=== PATIENT | female | born 1965 | race Caucasian/White ===

== ENCOUNTER 2020-07-14 16:45 | Outpatient (REF) | payer OTHER, SELFPAY ==
--- NOTE | 2020-07-14 16:49 | MM_ITS ---
EXAMINATION: MM SCREENING DIGITAL BREAST TOMOSYNTHESIS, BILATERAL CLINICAL INFORMATION: Screening. Asymptomatic. Family history breast cancer (maternal grandmother, age 70). The lifetime risk of breast cancer based on the Tyrer-Cuzick Model is 9%. COMPARISON: Mammography: 12/25/2018, outside mammography 02/08/2016, 01/05/2015, 12/29/2014 ([facility]) TECHNIQUE: Digital breast tomosynthesis is performed in both the craniocaudal and mediolateral oblique views along with computer-aided detection (CAD). Synthesized 2D images are generated from the tomosynthesis. FINDINGS: There are scattered areas of fibroglandular density (ACR BI-RADS breast composition Category b). There are no significant masses, abnormal calcifications, or other abnormalities. Pattern is similar to prior studies. No developing density. The axilla and skin contours are unremarkable. IMPRESSION: No significant changes from prior exams. ASSESSMENT: BI-RADS 1: Negative RECOMMENDATION: Routine annual mammography screening. This patient's information was entered into a reminder system with a target due date for their next mammogram.
== END 2020-07-14 16:46 | disposition home or self-care (01) ==
LOC: HO.MAMMO 16:45
PROVIDERS: PCP Internal Medicine; Visit Provider Internal Medicine
DX: Z12.31 Encounter for screening mammogram for malignant neoplasm of breast (principal)
CPT/HCPCS: 77063; 77067

== ENCOUNTER 2021-08-02 13:20 | Outpatient (REF) | payer OTHER, SELFPAY ==
--- NOTE | ~2021-08-02 | MM_ITS ---
EXAMINATION: MM SCREENING DIGITAL BREAST TOMOSYNTHESIS, BILATERAL CLINICAL INFORMATION: Screening. Asymptomatic. The lifetime risk of breast cancer based on the Tyrer-Cuzick Model is 8%. COMPARISON: Mammography: 07/14/2020, 12/25/2018, outside mammography 02/08/2016 ([facility]) TECHNIQUE: Digital breast tomosynthesis is performed in both the craniocaudal and mediolateral oblique views along with computer-aided detection (CAD). Synthesized 2D images are generated from the tomosynthesis. FINDINGS: There are scattered areas of fibroglandular density (ACR BI-RADS breast composition Category b). There are no significant masses, abnormal calcifications, or other abnormalities. There is no developing density or architectural abnormality. Parenchymal pattern is similar to previous exams. The axilla are unremarkable. The skin contours are smooth. No significant changes. MM/MM tomosynthesis screening BI IMPRESSION: No mammographic evidence of malignancy. ASSESSMENT: BI-RADS 1: Negative RECOMMENDATION: Routine annual mammography screening. This patient's information was entered into a reminder system with a target due date for their next mammogram.
== END 2021-08-02 13:21 | disposition home or self-care (01) ==
LOC: HO.MAMMO 13:20
PROVIDERS: Visit Provider Internal Medicine
DX: Z12.31 Encounter for screening mammogram for malignant neoplasm of breast (principal)
CPT/HCPCS: 77063; 77067

== ENCOUNTER 2022-05-16 08:02 | Outpatient (REF) | payer OTHER, SELFPAY ==
[2022-05-16 11:19] LABS: MANUAL DIFF FLAG NO
[2022-05-16 11:36] LABS: Basophils Absolute Auto 0.1 X10*3/uL (0.0-0.2); Basophils Percent Auto 1.1 % (0-2); Eosinophils Absolute Auto 0.2 X10*3/uL (0.0-0.4); Eosinophils Percent Auto 2.5 % (0-4); Hematocrit 44.3 % (37.0-47.0); Hemoglobin 14.3 g/dl (12.0-16.0); Imm Gran Abs Auto 0.01 X10*3/uL (0.00-0.03); Imm Gran Pct Auto 0.2 % (0.0-0.4); Lymphocytes Absolute Auto 1.9 X10*3/uL (1.2-4.9); Mean Corpuscular HGB Conc 32.3 g/dl (31.0-35.0); Mean Corpuscular Hemoglobin 30.7 pg (27.0-33.0); Mean Corpuscular Volume 95.1 fL (80.0-98.0); Mean Platelet Volume 10.9 fL (9.4-12.3); Monocytes Absolute Auto 0.4 X10*3/uL (0.1-1.2); Monocytes Percent Auto 6.8 % (2-11); Neutrophils Absolute Auto 3.8 x10*3/uL (2.0-8.3); Neutrophils Percent Auto 59.4 % (45-73); Platelet Count 336 X10*3/uL (160-400); Red Blood Count 4.66 X10*6/uL (4.20-5.50); Red Cell Distribution Width 13.2 % (11.0-16.0); White Blood Count 6.4 X10*3/uL (4.8-10.8)
[2022-05-16 11:55] LABS: Alanine Aminotransferase 15 U/L (0-31); Albumin Level 4.1 g/dL (3.5-5.0); Alkaline Phosphatase 70 U/L (39-117); Anion Gap 14 (12-20); Aspartate Amino Transferase 18 U/L (5-31); Bilirubin Total 0.5 mg/dL (0.0-1.0); Blood Urea Nitrogen 13 mg/dL (9-16); Calcium 9.6 mg/dL (8.4-10.2); Carbon Dioxide 27 mmol/L (22-29); Chloride 105 mmol/L (96-108); Cholesterol 219 mg/dL; Estimated Glomerular Filt Rate > 60; Glucose Fasting 93 mg/dL (60-99); HDL Cholesterol 69 mg/dL; LDL Cholesterol Calculated 136 mg/dl; Potassium 4.7 mmol/L (3.3-5.1); Sodium 141 mmol/L (135-145); Total Protein 6.4 g/dL (6.5-8.0); Triglycerides 74 mg/dL
[2022-05-16 12:18] LABS: TSH reflex Free T4 4.62 uIU/mL (0.32-4.0)
[2022-05-16 13:35] LABS: Free T4 (Free Thyroxine) 1.08 ng/dL (0.71-1.85)
== END 2022-05-16 08:03 | disposition home or self-care (01) ==
LOC: HO.HMGCLDS 08:02
PROVIDERS: PCP Internal Medicine; Visit Provider Internal Medicine
DX: Z00.00 Encounter for general adult medical examination without abnormal findings (principal); E03.9 Hypothyroidism, unspecified
CPT/HCPCS: 36415; 80053; 80061; 84439; 84443; 85025

== ENCOUNTER 2022-08-08 12:39 | Outpatient (REF) | payer OTHER, SELFPAY ==
--- NOTE | ~2022-08-08 | MM_ITS ---
EXAMINATION: MM SCREENING DIGITAL BREAST TOMOSYNTHESIS, BILATERAL CLINICAL INFORMATION: Screening. Asymptomatic. COMPARISON: Mammography: 08/02/2021, 07/14/2020, 12/25/2018 TECHNIQUE: Digital breast tomosynthesis is performed in both the craniocaudal and mediolateral oblique views along with computer-aided detection (CAD). Synthesized 2D images are generated from the tomosynthesis. FINDINGS: There are scattered areas of fibroglandular density (ACR BI-RADS breast composition Category b). There are no significant masses, abnormal calcifications, or other abnormalities. Parenchymal pattern is similar to prior studies. There is no developing density or architectural abnormality. The axilla and skin contours are unremarkable. No significant changes. MM/MM tomosynthesis screening BI IMPRESSION: No mammographic evidence of malignancy. ASSESSMENT: BI-RADS 1: Negative RECOMMENDATION: Routine annual mammography screening. This patient's information was entered into a reminder system with a target due date for their next mammogram.
== END 2022-08-08 12:40 | disposition home or self-care (01) ==
LOC: HO.MAMMO 12:39
PROVIDERS: Visit Provider Internal Medicine
DX: Z12.31 Encounter for screening mammogram for malignant neoplasm of breast (principal)
CPT/HCPCS: 77063; 77067

== ENCOUNTER 2023-04-17 10:01 | Outpatient (AMB) | payer OTHER, SELFPAY ==
[2023-04-17 11:29] VITALS: BP 114/78; PULSE 58; TEMP 36.7; O2SAT 99
--- NOTE | 2023-04-17 11:29 | MHC.OFFWIV ---
Intake Vital Signs 04/17/23 11:29 Height 5 ft 5.5 in BP 114/78 Blood Pressure Location Rt brachial Position Sitting Pulse 58 Pulse Source Pulse Oximeter Temp 98.1 F Temp Source Oral Pulse Oximetry (%) 99 Oxygen Delivery Method Room Air Intake Visit Reasons: EP, Right ear pain Patient Tobacco Use Status: Never used Tobacco Allergies Fish Containing Products Allergy (Intermediate, Verified 04/17/23 11:30) SWELLING bee pollen [BEE STINGS] Allergy (Unknown, Verified 04/17/23 11:30) UNKNOWN lobster Allergy (Unknown, Verified 04/17/23 11:30) neck swelling, abd pain sulfa Allergy (Unknown, Verified 04/17/23 11:30) facial rash, hives sulfamethoxazole [From MAYRA] Allergy (Unknown, Verified 04/17/23 11:30) RASH trimethoprim [From MAYRA] Allergy (Unknown, Verified 04/17/23 11:30) RASH bee sting Allergy (Unknown, Uncoded 05/23/22 09:23) blisters bee stings Allergy (Unknown, Uncoded 05/23/22 09:23) swelling Do you need a note to return to daycare/school/sports/work: No HPI HPI Comments History of Present Illness Details 57-year-old female presents with almost 2 weeks of right-sided ear pain and pressure that has been causing some dizziness, and has been unrelieved with [id number] medications. She has been taking a decongestant, and Dramamine to help her with the dizziness however mhpn-lka-qzfgqok measures have been unsuccessful. He does report swimming a few weeks ago, and then the pain started shortly after. PFSH Medical History FHx: colon cancer Hx of bone density study Osteopenia after menopause Surgical History H/O colonoscopy Family History Father Diabetes Colorectal cancer Mother Hypothyroid Social History Housing: House Patient Tobacco Use Status: Never used Tobacco e-Cigarette/Vaping Use: Never Used Current occupational status: employed Cognitive needs: No Hearing needs: No Vision needs: Yes Review of Systems Const Details: Constitutional: No Fever, No Chills ENT/Mouth: Positive Ear Pain, No Hoarseness, No sore throat Eyes: No Eye Pain, No Swelling, No Redness, No Foreign Body Cardiovascular: No Chest Pain, No SOB Respiratory: No Cough, No Dyspnea Gastrointestinal: No Nausea, No Vomiting, No Diarrhea, No abdominal Pain Genitourinary: No Dysuria, No Hematuria Musculoskeletal: No joint pain, No Myalgias, No Joint Swelling Skin: No Skin lacerations, No rash Neuro: No Weakness, No Dizziness, No Headache All systems reviewed & are unremarkable except as noted in HPI and below Physical Exam Vital Signs: Last Vital Signs Temp 98.1 F 04/17/23 11:29 Pulse 58 04/17/23 11:29 BP 114/78 04/17/23 11:29 Pulse Ox 99 04/17/23 11:29 Oxygen Delivery Method Room Air 04/17/23 11:29 Appearance: Alert. Oriented X3. No acute distress. Eyes: Pupils equal, round and reactive to light. ENT: Pharynx normal. Right-sided otitis externa, and otitis media. Bulging erythematous tympanic membrane without perforation, suppurative. Left canal and membrane normal. No mastoid tenderness. No nuchal rigidity. Tenderness to the tragus on the right side only. Neck: Normal inspection. Neck supple. no vertebral tenderness or step-offs. No meningeal signs. CVS: Normal heart rate and rhythm. Pulses normal. Respiratory: No respiratory distress. Skin: Skin warm and dry. Normal skin color. Normal skin turgor. Extremities: Gait well balanced well coordinated. Neuro: No motor deficit. No sensory deficit. Cranial nerves 2-12 intact. Assessment & Plan Assessment & Plan (1) Otitis externa: Code(s): H60.90 - Unspecified otitis externa, unspecified ear (2) Otitis media: Code(s): H66.90 - Otitis media, unspecified, unspecified ear Plan 57-year-old female presents with almost 2 weeks of right-sided ear pain and dizziness, pain started few days after swimming. She has been taking cqqw-mno-[id number] medications to help alleviate the ear pain and dizziness, with no effect. She states pain has worsened, but did not report fevers, chills, or loss of hearing. She does not report loss of balance, or changes in vision. Physical exam indicates otitis media and otitis externa to the right ear, left ear is normal. She does have some tenderness to the tragus on the right side, but no mastoid tenderness, no nuchal rigidity. No meningeal signs. No rashes. Plan of care is to treat for otitis media and externa. Patient verbalized understanding of discharge instructions. Verbalized understandings of signs and symptoms indicating need for emergent intervention. Medications: New ciprofloxacin-dexamethasone 0.3-0.1 % (Ciprodex) 4 drps otic (ears) BID 7 days 7.5 mL 0RF right ear amoxicillin-pot clavulanate 875-125 mg 1 tab PO Q12H 5 days 10 tabs 0RF Patient Instructions: You were evaluated for right-sided ear pain. Physical exam indicates an external ear canal and an inner ear infection. You will require 2 antibiotics for this finding. For the external ear infection, take Ciprodex drops, 4 drops to the right ear every 12 hours for the next 7 days. For otitis media tab, take Augmentin 875 mg 1 tablet every 12 hours for the next 5 days. Alternate Tylenol 650 mg every 6 hours and Motrin 600 mg every 6 hours as needed for pain management. Consider taking these medications 3 hours apart so you have pain and fever management every 3 hours. Write down what time you take these medications to prevent accidental overdose. Motrin is the same medication as Advil and ibuprofen. Tylenol is the same medication as acetaminophen. Thank you for choosing this urgent care for evaluation. Please follow-up with primary care physician as needed. Return to the emergency department for any new, concerning, or worsening symptoms. Coding Level of Care Code Est Pt Level 3 (50438) Diagnoses Otitis externa H60.90 Otitis media H66.90
== END 2023-04-17 12:22 | disposition home or self-care (01) ==
PROVIDERS: PCP Internal Medicine; Visit Provider Nurse Practitioner Family
DX: H60.91 Unspecified otitis externa, right ear (principal); H66.91 Otitis media, unspecified, right ear
CPT/HCPCS: 99213

== ENCOUNTER 2023-08-14 10:12 | Outpatient (REF) | payer OTHER, SELFPAY ==
--- NOTE | ~2023-08-14 | MM_ITS ---
EXAMINATION: MM SCREENING DIGITAL BREAST TOMOSYNTHESIS, BILATERAL CLINICAL INFORMATION: Screening. Asymptomatic. COMPARISON: Mammography: This study is compared with prior exams dating back to 2016. TECHNIQUE: Digital breast tomosynthesis is performed in both the craniocaudal and mediolateral oblique views along with computer-aided detection (CAD). Synthesized 2D images are generated from the tomosynthesis. FINDINGS: There are scattered areas of fibroglandular density (ACR BI-RADS breast composition Category b). There are no significant masses, abnormal calcifications, or other abnormalities. MM/MM tomosynthesis screening BI IMPRESSION: No mammographic evidence of malignancy. ASSESSMENT: BI-RADS BI-RADS 1 - Negative RECOMMENDATION: Routine annual mammography screening. 1 year F/U This examination should not preclude the clinical evaluation of a suspicious palpable abnormality. This patient's information was entered into a reminder system with a target due date for their next mammogram.
== END 2023-08-14 10:13 | disposition home or self-care (01) ==
LOC: HO.MAMMO 10:12
PROVIDERS: PCP Internal Medicine; Visit Provider Internal Medicine
DX: Z12.31 Encounter for screening mammogram for malignant neoplasm of breast (principal)
CPT/HCPCS: 77063; 77067

== ENCOUNTER → 2023-08-14 10:30 | Outpatient (BNV) | payer OTHER, SELFPAY | PROVIDERS: PCP Internal Medicine; Visit Provider Radiology Diagnostic Radiology | DX: Z12.31 Encounter for screening mammogram for malignant neoplasm of breast (principal) | CPT/HCPCS: 77063; 77067 ==

== ENCOUNTER 2023-11-28 09:11 | Outpatient (AMB) | payer OTHER, SELFPAY ==
[2023-11-28 10:09] VITALS: BP 130/68; PULSE 60; TEMP 36.6; O2SAT 98; BMI 29.3
--- NOTE | 2023-11-28 10:09 | MHC.OFFWIV ---
Intake Vital Signs 11/28/23 10:09 Height 5 ft 5.5 in Weight 179 lb BMI 29.3 BP 130/68 Blood Pressure Location Lt brachial Position Sitting Pulse 60 Pulse Source Pulse Oximeter Temp 97.9 F Temp Source Temporal Artery Scan Pulse Oximetry (%) 98 Oxygen Delivery Method Room Air Intake Visit Reasons: EP Sinus pressure/pain Intake Note: pt is here today for sinus pressure pain started Patient Tobacco Use Status: Never used Tobacco Allergies Fish Containing Products Allergy (Severe, Verified 11/28/23 11:06) Swelling bee pollen [BEE STINGS] Allergy (Unknown, Verified 11/28/23 11:06) Unknown lobster Allergy (Unknown, Verified 11/28/23 11:06) neck swelling, abd pain sulfa Allergy (Unknown, Verified 11/28/23 11:06) facial rash, hives sulfamethoxazole [From [facility]PTRA] Allergy (Unknown, Verified 11/28/23 11:06) Rash trimethoprim [From SEPTRA] Allergy (Unknown, Verified 11/28/23 11:06) Rash Medication List - Last Reconciled 11/28/23 by SHAHNAZ Rico amoxicillin-pot clavulanate 875-125 mg 1 tab PO Q12H ciprofloxacin-dexamethasone 0.3-0.1 % (Ciprodex) 4 drps otic (ears) BID 7 days fluticasone propionate 50 mcg/actuation (Allergy Relief (fluticasone)) 1 spray intranasal DAILY levothyroxine 4 days per week orally daily; levothyroxine 3 days per week orally; Do you need a note to return to daycare/school/sports/work: Yes HPI HPI Comments History of Present Illness Details Patient is a 58-year-old female in today for a sick visit. She states that for the past several days she has developed symptoms of sinus pressure, headache, bilateral ear pain. She states she has a history of ear infections. Denies fever, chest pain, shortness a breath, numbness, nausea, vomiting, diarrhea. She has not taken any medication for relief. Will obtain URI swab. PFSH Medical History Hx of bone density study FHx: colon cancer Osteopenia after menopause Surgical History H/O colonoscopy Family History Father Diabetes Colorectal cancer Mother Hypothyroid Social History Housing: House Patient Tobacco Use Status: Never used Tobacco e-Cigarette/Vaping Use: Never Used Current occupational status: employed Cognitive needs: No Hearing needs: No Vision needs: Yes Review of Systems Const Details: Constitutional : No Weight loss, No Fever, No Chills, No Fatigue, No Malaise ENT/Mouth : No sore throat, Admits sinus tenderness. Admits bilateral ear pain. Eyes: No Eye Pain, No Swelling, No Redness Cardiovascular : No Chest Pain, No SOB, No Dyspnea on Exertion, No Orthopnea, No Edema, No Palpitations Respiratory : No Cough, No Sputum, No Wheezing Gastrointestinal : No Nausea, No Vomiting, No Diarrhea, No Constipation, No abdominal Pain, No Hematochezia, No Melena Genitourinary : No Dysuria, No Urinary Frequency, No Hematuria, Musculoskeletal : No joint pain, No Myalgias, No Joint Swelling Skin : No Skin Lesions, No rash Neuro : No Weakness, No Numbness, No Dizziness, No Headache Psych : No Anxiety/Panic, No Depression Heme/Lymph: No Bruising, No Bleeding,No Lymphadenopathy Endocrine : No Polyuria, No Polydipsia All other systems reviewed and are negative Physical Exam Vital Signs: Last Vital Signs Temp 97.9 F 11/28/23 10:09 Pulse 60 11/28/23 10:09 BP 130/68 11/28/23 10:09 Pulse Ox 98 11/28/23 10:09 Oxygen Delivery Method Room Air 11/28/23 10:09 BMI result Body Mass Index 29.3 Const Other: Appearance: Alert.? Oriented X3.? No acute distress.? Head: Normocephalic. Eyes: Pupils equal, round and reactive to light.? ENT: Pharynx normal.?+ nasal congestion. + Sinus tednerness, TM intact with erythema and effusion bilaterally. Neck: Normal inspection.? Neck supple.? CVS: Normal heart rate and rhythm.? Pulses normal.? Respiratory: No respiratory distress.? Breath sounds normal.? Neuro: Oriented X 3.? No motor deficit.? No sensory deficit. CN 2-12 intact Assessment & Plan Assessment & Plan (1) Otitis media: Comment: Patient will be given Augmentin to be taken as directed. Patient has been educated on the side effects of the medication. Patient has also been instructed that she can use mlgi-llw-kvugowh medicine like Mucinex, Tylenol. Code(s): H66.90 - Otitis media, unspecified, unspecified ear Qualifiers: Otitis media type: unspecified Chronicity: acute Qualified Code(s): H66.90 - Otitis media, unspecified, unspecified ear Plan: Take your medications as prescribed. If you were prescribed antibiotics today, it is important that you take your medication to their entirety, do not skip any doses, do not finish them early. Follow-up with your primary care provider this week. Return to the emergency department with new or worsening symptoms. Such as fevers, chills, chest pain, shortness of breath, nausea, vomiting, dizziness, headache, vision changes, lethargy In case of emergency call 911 Orders: Orders SARS-CoV2/FLU/RSV Today J06.9 - Acute upper respiratory infection, unspecified Medications: New amoxicillin-pot clavulanate 875-125 mg 1 tab PO Q12H 14 tabs 0RF fluticasone propionate 50 mcg/actuation (Allergy Relief (fluticasone)) administer into each nostril 1 spray intranasal DAILY 16 grams 0RF Refilled levothyroxine 3 days per week orally; 39 tabs 3RF E03.9 - Hypothyroidism, unspecified Patient Instructions: Follow-up with PCP Coding Level of Care Code Est Pt Level 3 (15716) Diagnoses Acute otitis media, unspecified otitis media type H66.90 Otitis media type: unspecified Chronicity: acute Time Spent (min) 18
== END 2023-11-28 13:39 | disposition home or self-care (01) ==
PROVIDERS: PCP Internal Medicine; Visit Provider Nurse Practitioner Primary Care
DX: H66.93 Otitis media, unspecified, bilateral (principal)
CPT/HCPCS: 99213

== ENCOUNTER 2023-11-28 14:06 | Outpatient (REF) | payer OTHER, SELFPAY ==
[2023-11-28 15:15] LABS: Influenza A PCR NEGATIVE (Negative); Influenza B PCR NEGATIVE (Negative); Resp Syncy Virus RNA Qual PCR NEGATIVE (Negative); SARS COV2 PCR INHOUSE NEGATIVE (Negative)
== END 2023-11-28 14:07 | disposition home or self-care (01) ==
LOC: HO.HMGCLNP 14:06
PROVIDERS: Visit Provider Nurse Practitioner Primary Care
DX: Z11.52 Encounter for screening for COVID-19 (principal); Z20.822 Contact with and (suspected) exposure to COVID-19; J06.9 Acute upper respiratory infection, unspecified
CPT/HCPCS: 0241U

== ENCOUNTER 2023-12-11 08:52 | Outpatient (REF) | payer OTHER, SELFPAY ==
[2023-12-11 11:10] LABS: MANUAL DIFF FLAG NO
[2023-12-11 11:32] LABS: Basophils Absolute Auto 0.1 X10*3/uL (0.0-0.2); Basophils Percent Auto 1.3 % (0-2); Eosinophils Absolute Auto 0.2 X10*3/uL (0.0-0.4); Eosinophils Percent Auto 3.2 % (0-4); Hematocrit 43.5 % (37.0-47.0); Hemoglobin 14.2 g/dl (12.0-16.0); Imm Gran Abs Auto 0.02 X10*3/uL (0.00-0.03); Imm Gran Pct Auto 0.3 % (0.0-0.4); Lymphocytes Absolute Auto 2.2 X10*3/uL (1.2-4.9); Lymphocytes Percent Auto 31.3 % (20-40); Mean Corpuscular HGB Conc 32.6 g/dl (31.0-35.0); Mean Corpuscular Hemoglobin 30.5 pg (27.0-33.0); Mean Corpuscular Volume 93.3 fL (80.0-98.0); Monocytes Absolute Auto 0.5 X10*3/uL (0.1-1.2); Monocytes Percent Auto 6.7 % (2-11); Neutrophils Percent Auto 57.2 % (45-73); Platelet Count 336 X10*3/uL (160-400); Red Blood Count 4.66 X10*6/uL (4.20-5.50); Red Cell Distribution Width 13.5 % (11.0-16.0); White Blood Count 6.9 X10*3/uL (4.8-10.8)
[2023-12-11 11:48] LABS: Alanine Aminotransferase 25 U/L (0-31); Albumin Level 3.9 g/dL (3.5-5.0); Alkaline Phosphatase 80 U/L (39-117); Anion Gap 12 (12-20); Aspartate Amino Transferase 19 U/L (5-31); Bilirubin Total 0.4 mg/dL (0.0-1.0); Blood Urea Nitrogen 20 mg/dL (9-16); Calcium 9.4 mg/dL (8.4-10.2); Carbon Dioxide 27 mmol/L (22-29); Chloride 106 mmol/L (96-108); Cholesterol 178 mg/dL (<200); Estimated Glomerular Filt Rate > 60; Glucose Fasting 90 mg/dL (60-99); HDL Cholesterol 53 mg/dL (>40); LDL Cholesterol Calculated 112 mg/dL (<100); Sodium 141 mmol/L (135-145); Total Protein 6.2 g/dL (6.5-8.0); Triglycerides 69 mg/dL (<150)
[2023-12-11 12:05] LABS: TSH reflex Free T4 2.84 uIU/mL (0.32-4.0)
== END 2023-12-11 08:53 | disposition home or self-care (01) ==
LOC: HO.HMGCLDS 08:52
PROVIDERS: PCP Internal Medicine; Visit Provider Internal Medicine
DX: Z00.00 Encounter for general adult medical examination without abnormal findings (principal)
CPT/HCPCS: 36415; 80053; 80061; 82306; 84443; 85025

== ENCOUNTER 2023-12-18 08:58 | Outpatient (AMB) | payer OTHER, SELFPAY ==
[2023-12-18 09:13] VITALS: BP 118/76; PULSE 63; O2SAT 99; BMI 28.8
--- NOTE | 2023-12-18 09:13 | MHC.PC.OV ---
Vital Signs 12/18/23 09:13 Height 5 ft 5.5 in Weight 176 lb BMI 28.8 BP 118/76 Blood Pressure Location Lt brachial Position Sitting Pulse 63 Pulse Source Pulse Oximeter Pulse Oximetry (%) 99 Oxygen Delivery Method Room Air Intake Visit Reasons: F/U labs/thyroid Intake Note: Pt is here today for PE. Allergies Fish Containing Products Allergy (Severe, Verified 12/18/23 09:15) Swelling bee pollen [BEE STINGS] Allergy (Unknown, Verified 12/18/23 09:15) Unknown lobster Allergy (Unknown, Verified 12/18/23 09:15) neck swelling, abd pain sulfa Allergy (Unknown, Verified 12/18/23 09:15) facial rash, hives sulfamethoxazole [From SEPTRA] Allergy (Unknown, Verified 12/18/23 09:15) Rash trimethoprim [From SEPTRA] Allergy (Unknown, Verified 12/18/23 09:15) Rash amoxicillin Adverse Reaction (Verified 12/18/23 09:15) Vomiting Medication List - Last Reconciled 12/18/23 by Nilsa Bush MD levothyroxine 4 days per week orally daily; levothyroxine 3 days per week orally; Tobacco use date assessed: 12/18/23 Dental Screening Dental Screen Date: 12/18/23 Did you have a dental visit in the last 12 months?: Yes Did you have a dental problem in the last 6 months where you did not have access to dental care?: No Was dental information given to patient?: Patient has dentist HPI F/U labs/thyroid HPI Details Patient presents for PE. PFSH Medical History Hx of bone density study FHx: colon cancer Osteopenia after menopause Surgical History H/O colonoscopy Family History Father Diabetes Colorectal cancer Mother Hypothyroid Social History Housing: House Patient Tobacco Use Status: Never used Tobacco e-Cigarette/Vaping Use: Never Used Current occupational status: employed Cognitive needs: No Hearing needs: No Vision needs: Yes Questionnaire PHQ-9 Over the last 2 weeks, how often have you been bothered by any of the following problems? 1. Little interest or pleasure in doing things: not at all 2. Feeling down, depressed, or hopeless: not at all 3. Trouble falling or staying asleep, or sleeping too much: not at all 4. Feeling tired or having little energy: not at all 5. Poor appetite or overeating: not at all 6. Feeling bad about yourself - or that you are a failure or have let yourself or your family down: not at all 7. Trouble concentrating on things, such as reading the newspaper or watching television: not at all 8. Moving or speaking so slowly that other people could have noticed. Or the opposite - being so fidgety or restless that you have been moving around a lot more than usual: not at all 9. Thoughts that you would be better off or of hurting yourself in some way: not at all Total score: 0 Depression Screening Interpretation: Negative Depression Screening Done: Yes Source: Developed by Drs. Valdez Bolton, Eliana Rice, Jesus Rojas and colleagues, with an educational john from [employer]. Thrive Questionnaire Date Thrive assessed: 12/18/23 I am a: Patient What is your living situation today?: I have a steady place to live Within the past 12 months, did the food you bought not last and you didn't have the money to get more?: Never true Within the past 12 months, did you worry whether your food would run out before you got money to buy more?: Never true Do you have trouble paying for medicines?: No Do you have trouble getting transportation to medical appointments?: No Do you have trouble paying your heating and electricity bill?: No Do you have trouble taking care of your child, family member or friend?: No Do you have trouble with day-to-day activities such as bathing, preparing meals, shopping, managing finances, etc.?: No Are you currently unemployed and looking for a job?: No Are you interested in more education?: No Please select the resources that you would like help with: None Currently or been in a relationship where the following occur: no concerns reported THRIVE Score: 0 AUDIT C Alcohol Use Questionnaire (AUDIT-C) 1. How often do you have a drink containing alcohol?: Monthly or less 2. How many drinks containing alcohol do you have on a typical day when you are drinking?: 1 or 2 3. How often do you have six or more drinks on one occasion?: Never Total Score: 1 ROSIO-7 AMB Questionnaire ROSIO-7 Date ROSIO - 7 assessed: 12/18/23 Feeling nervous, anxious, or on edge: 0 = Not at all Not being able to stop or control worryin = Not at all Worrying too much about different things: 0 = Not at all Trouble relaxin = Not at all Being so restless that it is hard to sit still: 0 = Not at all Becoming easily annoyed or irritable: 0 = Not at all Feeling afraid as if something awful might happen: 0 = Not at all Total ROSIO-7 score (0-4 normal; 5-9 mild; 10-14 moderate; 15-21 severe): 0 Source: Developed by Drs. Valdez Bolton, Eliana Rice, Jesus Rojas and colleagues, with an educational john from [employer]. Review of Systems Const All systems reviewed & are unremarkable except as noted in HPI and below Reports no additional complaints Eyes Reports no additional complaints ENT Reports no additional complaints Card Reports no additional complaints Resp Reports no additional complaints GI Reports no additional complaints Reports no additional complaints Physical exam (Primary Care) Vital Signs: Last Vital Signs Pulse 63 12/18/23 09:13 BP 118/76 12/18/23 09:13 Pulse Ox 99 12/18/23 09:13 Oxygen Delivery Method Room Air 12/18/23 09:13 BMI result Body Mass Index 28.8 Tobacco/Smoking Status: Tobacco use Status Tobacco use date assessed 12/18/23 12/18/23 09:18 Patient Tobacco Use Status Never used Tobacco 12/18/23 09:18 e-Cigarette/Vaping Use Never Used 12/18/23 09:18 PHQ-9: PHQ-9 Score PHQ-9: Total score 0 12/18/23 09:29 Depression Screening Interpretation: Negative Thrive Assessment: Date of Thrive Assessment Date Thrive assessed 12/18/23 12/18/23 09:29 Currently or been in a relationship where the following occur: no concerns reported Const General: no acute distress HENMT Head: Yes normal to inspection Ears: hearing grossly normal bilaterally Face and sinus: Yes normal facial exam Mouth: Normal oral and palatal mucosa present Throat: Yes posterior oropharynx normal Eyes General: appearance normal, both eyes and all related structures Neck Neck: Yes no lymphadenopathy and Yes supple Resp Effort & Inspection: normal respiratory effort Auscultation: clear to auscultation bilaterally Cardio Rhythm: regular rhythm Heart sounds: S1 normal heart sound present and S2 normal heart sound present GI Inspection: Yes normal to inspection Palpation (GI): Soft to palpation Percussion: Yes normal to percussion Auscultation: normal bowel sounds Assessment and Plan Assessment & Plan (1) H/O colonoscopy: Comment: colon > 03/2019 polyps tubular adenoma, repeat 5 yrs Code(s): Z98.890 - Other specified postprocedural states Plan: Pt will schedule OV with GI (2) Hypothyroid: Code(s): E03.9 - Hypothyroidism, unspecified Plan: cont Levothyroxine (3) Annual physical exam: Code(s): Z00.00 - Encounter for general adult medical examination without abnormal findings Plan: well balanced diet discussed, regular exercise discussed with the pt. She is up-to-date with the mammogram and pelvic exam (4) Hyperlipidemia: Code(s): E78.5 - Hyperlipidemia, unspecified Orders: Orders Comprehensive Mclean. Panel Fast 1 Year E03.9 - Hypothyroidism, unspecified, E78.5 - Hyperlipidemia, unspecified, Z00.00 - Encounter for general adult medical examination without abnormal findings Complete Blood Count Auto Diff 1 Year E03.9 - Hypothyroidism, unspecified, E78.5 - Hyperlipidemia, unspecified, Z00.00 - Encounter for general adult medical examination without abnormal findings Lipid Panel 1 Year E03.9 - Hypothyroidism, unspecified, E78.5 - Hyperlipidemia, unspecified, Z00.00 - Encounter for general adult medical examination without abnormal findings UA w Microscopic 1 Year E03.9 - Hypothyroidism, unspecified, E78.5 - Hyperlipidemia, unspecified, Z00.00 - Encounter for general adult medical examination without abnormal findings TSH reflex Free T4 1 Year E03.9 - Hypothyroidism, unspecified, E78.5 - Hyperlipidemia, unspecified, Z00.00 - Encounter for general adult medical examination without abnormal findings Vitamin D 25-OH Total 1 Year E03.9 - Hypothyroidism, unspecified, E78.5 - Hyperlipidemia, unspecified, Z00.00 - Encounter for general adult medical examination without abnormal findings Referrals Gastroenterology Referral Z98.890 - Other specified postprocedural states Medications: Refilled levothyroxine 4 days per week orally daily; 50 tabs 3RF E03.9 - Hypothyroidism, unspecified levothyroxine 3 days per week orally; 39 tabs 3RF E03.9 - Hypothyroidism, unspecified Coding Level of Care Code Est Pt Prev Care 40-64y(19364) Diagnoses H/O colonoscopy Z98.890 Hypothyroid E03.9 Annual physical exam Z00.00 Hyperlipidemia E78.5
== END 2023-12-18 13:52 | disposition home or self-care (01) ==
PROVIDERS: PCP Internal Medicine; Visit Provider Internal Medicine
DX: Z98.890 Other specified postprocedural states (principal); E03.9 Hypothyroidism, unspecified; Z00.00 Encounter for general adult medical examination without abnormal findings; E78.5 Hyperlipidemia, unspecified
CPT/HCPCS: 99396

== ENCOUNTER 2024-03-11 14:00 | Outpatient (AMB) | payer OTHER, SELFPAY ==
--- NOTE | 2024-03-11 14:07 | A.OFFVIS_ITS ---
Vital Signs 03/11/24 14:11 Height 5 ft 5.5 in Weight 174 lb BMI 28.5 BP 121/69 Blood Pressure Location Lt brachial Position Sitting Pulse 62 Intake Visit Reasons: Recall Colonoscopy - EC2018 Intake Note: Patient 2nd pre colonoscopy screening. 2018 Patient denies any GI issues. Facilities Supervisor Required: No Accompanied by: Self / Same As Patient Allergies Fish Containing Products Allergy (Severe, Verified 03/11/24 14:06) Swelling bee pollen [BEE STINGS] Allergy (Unknown, Verified 03/11/24 14:06) Unknown lobster Allergy (Unknown, Verified 03/11/24 14:06) neck swelling, abd pain sulfa Allergy (Unknown, Verified 03/11/24 14:06) facial rash, hives sulfamethoxazole [From SEPTRA] Allergy (Unknown, Verified 03/11/24 14:06) Rash trimethoprim [From SEPTRA] Allergy (Unknown, Verified 03/11/24 14:06) Rash amoxicillin Adverse Reaction (Verified 03/11/24 14:06) Vomiting HPI HPI Recall Colonoscopy - EC 2019: Details: 58 year old? female here today for pre colonoscopy screening.? Patient was sent to us by her PCP.? ? Patient denies any gastrointestinal symptoms in the past or at present.? Denies history of difficulty with sedation or anesthesia in the past.? Negative for history of sleep apnea.? Denies any history of cardiac, renal, pulmonary, or hepatic disease.?? No history of infectious? diseases like hepatitis A, B, C, HIV or tuberculosis.? Patient is not on any anticoagulation. Last colonoscopy in 2019, polypectomy, tubular adenoma found. Family history of CRC. Patient's dad was diagnosed with colorectal cancer. Patient's brother diagnosed with polyps in his 50s. Paternal aunt in her 60s from CRC . PFSH Medical History Hx of bone density study FHx: colon cancer Osteopenia after menopause Surgical History H/O colonoscopy Family History Father Diabetes Colorectal cancer Mother Hypothyroid Social History Housing: House Patient Tobacco Use Status: Never used Tobacco e-Cigarette/Vaping Use: Never Used Current occupational status: employed Cognitive needs: No Hearing needs: No Vision needs: Yes Review of Systems Const Denies weight gain and Denies weight loss ENT Reports no additional complaints, Denies dysphagia and Denies odynophagia Card Reports no additional complaints Resp Reports no additional complaints GI Denies abdominal pain, Denies belching, Denies melena, Denies bloating, Denies change in bowel habits, Denies dysphagia, Denies excessive flatus, Denies dyspepsia, Denies heartburn, Denies diarrhea, Denies loose stools, Denies nausea, Denies odynophagia and Denies vomiting Musc Reports no additional complaints Neuro Reports no additional complaints Psych Reports no additional complaints Endo Reports no additional complaints Physical Exam Vital Signs: Last Vital Signs Pulse 62 03/11/24 14:11 BP 121/69 03/11/24 14:11 BMI result Body Mass Index 28.5 Const General: healthy appearing, no acute distress and well developed Nutritional Appearance: well nourished Orientation/consciousness: patient oriented x3 Resp Effort & Inspection: normal respiratory effort, able to speak in complete sentences, no tracheal deviation and symmetric chest movement Auscultation: clear to auscultation bilaterally Cardio Rate: regular rate GI Inspection: Yes normal to inspection and No distended Palpation (GI): Soft to palpation, not firm, nontender and No hepatosplenomegaly present Auscultation: normal bowel sounds General: Yes no CVA tenderness Back/Spine/Pelvis Back: no CVA tenderness Skin General skin exam: elasticity normal, turgor normal and dry skin Neuro General: patient oriented x3 Psych Appearance: grossly normal Mental Status: mental status grossly normal Assessment & Plan Assessment & Plan (1) H/O colonoscopy: Comment: colon > 03/2019 polyps tubular adenoma, repeat 5 yrs Code(s): Z98.890 - Other specified postprocedural states Category: Medical (2) Screen for colon cancer: Code(s): Z12.11 - Encounter for screening for malignant neoplasm of colon Plan Patient denies any GI, cardiac or respiratory symptoms.? Denies any issues with anesthesia in the past.? Denies any history of sleep apnea.? No history infectious diseases in the past or present.? Not on any anticoagulation therapy.? Family history of CRC.? Patient denies melena, hematochezia, unintentional weight loss or ribbon like stools.? Discussed at length the pre- procedure,? prep, diet & medications as well as what to expect prior, during and after the procedure.?? Stressed the importance of good bowel prep.? Recommended the use of Vaseline or Calmoseptine OTC & baby wipes with bowel movements to promote comfort.? ?Patient verbalizes understanding and agrees to plan of care.? She was given the opportunity to ask questions and all questions answered.? We will see her after the procedure.? Medications: New bisacodyl (Dulcolax (bisacodyl)) take 4 tabs at noon the day before your colonoscopy 20 mg (4 x 5 mg) PO ONCE 4 tabs 0RF 1 day Z12.11 - Encounter for screening for malignant neoplasm of colon polyethylene glycol 3350 (Miralax) As directed by gastroenterology department at [facility] 238 grams PO ONCE 238 grams 0RF Z12.11 - Encounter for screening for malignant neoplasm of colon Coding Level of Care Code New Pt Level 3 (37129) Diagnoses H/O colonoscopy Z98.890 Screen for colon cancer Z12.11 Time Spent (min) 40 Comment 30 minutes spent with patient and additional 10 minutes spent reviewing her records
[2024-03-11 14:11] VITALS: BP 121/69; PULSE 62; BMI 28.5
== END 2024-03-11 16:05 | disposition home or self-care (01) ==
PROVIDERS: PCP Internal Medicine; Referring Provider Internal Medicine; Visit Provider Nurse Practitioner Family
DX: Z98.890 Other specified postprocedural states (principal); Z12.11 Encounter for screening for malignant neoplasm of colon
CPT/HCPCS: 99203

== ENCOUNTER → 2024-03-11 14:00 | Outpatient (BNVA) | payer OTHER, SELFPAY | PROVIDERS: PCP Internal Medicine; Referring Provider Internal Medicine; Visit Provider Nurse Practitioner Family | DX: Z12.11 Encounter for screening for malignant neoplasm of colon (principal); Z98.890 Other specified postprocedural states | CPT/HCPCS: 99202 ==

== ENCOUNTER 2024-08-26 10:45 | Outpatient (REF) | payer OTHER, SELFPAY ==
--- NOTE | ~2024-08-26 | MM_ITS ---
EXAMINATION: MM SCREENING DIGITAL BREAST TOMOSYNTHESIS, BILATERAL CLINICAL INFORMATION: Screening. Asymptomatic. COMPARISON: Mammography: Comparison is made with available priors TECHNIQUE: Digital breast mammography with tomosynthesis is performed in both the craniocaudal and mediolateral oblique views along with computer-aided detection (CAD). FINDINGS: There are scattered areas of fibroglandular density (ACR BI-RADS breast composition Category b). There are no significant masses, abnormal calcifications, or other abnormalities. MM/MM tomosynthesis screening BI IMPRESSION: No mammographic evidence of malignancy. ASSESSMENT: BI-RADS BI-RADS 1 - Negative RECOMMENDATION: Routine annual mammography screening. 1 year F/U This examination should not preclude the clinical evaluation of a suspicious palpable abnormality. This patient's information was entered into a reminder system with a target due date for their next mammogram. Electronically signed by: Katlyn Rutherford DO 08/30/2024 01:37 PM DYLLAN
== END 2024-08-26 10:46 | disposition home or self-care (01) ==
LOC: HO.MAMMO 10:45
PROVIDERS: PCP Internal Medicine; Visit Provider Internal Medicine
DX: Z12.31 Encounter for screening mammogram for malignant neoplasm of breast (principal)
CPT/HCPCS: 77063; 77067

== ENCOUNTER → 2024-08-26 11:00 | Outpatient (BNV) | payer OTHER, SELFPAY | PROVIDERS: PCP Internal Medicine; Visit Provider Internal Medicine | DX: Z12.31 Encounter for screening mammogram for malignant neoplasm of breast (principal) | CPT/HCPCS: 77063; 77067 ==

== ENCOUNTER 2024-09-09 09:15 | Day surgery (SDC) | payer OTHER, SELFPAY ==
[2024-09-05 12:36] VITALS: BMI 28.5
--- NOTE | 2024-09-06 08:53 | HO.ANESPROP2 ---
HPI - Anesthesia Eval Consult details Narrative: 59yo F for Colonoscopy PMFSH Active Problems Active Problems: All Active Problems H/O colonoscopy (Acute) Otitis media (Acute) Otitis externa (Acute) Normal pelvic exam (Acute) Hypothyroid (Acute) Hyperlipidemia (Acute) Annual physical exam (Acute) Acquired hypothyroidism (Acute) Acute sinusitis (Acute) Past Medical History Medical History Hx of bone density study FHx: colon cancer Osteopenia after menopause Family History Family History Father Diabetes Colorectal cancer Mother Hypothyroid Surgical History Surgical History H/O colonoscopy Social History Social History Housing: House Patient Tobacco Use Status: Never used Tobacco e-Cigarette/Vaping Use: Never Used Current occupational status: employed Cognitive needs: No Hearing needs: No Vision needs: Yes Meds Allergies Allergy/AdvReac Type Severity Reaction Status Date / Time Fish Containing Products Allergy Severe Swelling Verified 03/11/24 14:06 bee pollen [BEE STINGS] Allergy Unknown Unknown Verified 03/11/24 14:06 lobster Allergy Unknown neck Verified 03/11/24 14:06 swelling, abd pain sulfa Allergy Unknown facial Verified 03/11/24 14:06 rash, hives sulfamethoxazole Allergy Unknown Rash Verified 03/11/24 14:06 [From ] trimethoprim [From ] Allergy Unknown Rash Verified 03/11/24 14:06 amoxicillin AdvReac Vomiting Verified 03/11/24 14:06 Exam Height,Weight and Vital Signs: Height 5 ft 5.5 in Weight 78.925 kg Assessment and Plan Assessment Anesthesia Assessment: Chart Reviewed
[2024-09-09 09:32] VITALS: BP 128/65; PULSE 59; RESP 16; TEMP 36.6; O2SAT 99
[2024-09-09] MEDS: Lactated Ringers 1,000 ML 100 ML IVCONT (09:45)
--- NOTE | 2024-09-09 09:45 | MHC.SHP ---
Pre-Procedural Eval Section A - 24 Hr Update-Section A only Date of Service: 09/09/24 The patient is an INPATIENT: No The patient has been examined within 24 hours of the surgical procedure. The History & Physical has been completed within 30 days and I have reviewed it.: No Section B - Complete if H&P > 30 days Chief Complaint: Family history of colon cancer Relevant Family History (Specify if Yes): Yes Relevant Social History: None Present Medications: see Short Stay Collaborative assessment Medical History: Significant History (FHx: colon cancer Osteopenia after menopause) History of Previous Operations: Relevant previous surgery/procedure and date(s) (H/O colonoscopy) Allergies: Allergies Allergy/AdvReac Type Severity Reaction Status Date / Time Fish Containing Products Allergy Severe Swelling Verified 03/11/24 14:06 bee pollen [BEE STINGS] Allergy Unknown Unknown Verified 03/11/24 14:06 lobster Allergy Unknown neck Verified 03/11/24 14:06 swelling, abd pain sulfa Allergy Unknown facial Verified 03/11/24 14:06 rash, hives sulfamethoxazole Allergy Unknown Rash Verified 03/11/24 14:06 [From SEPTRA] trimethoprim [From SEPTRA] Allergy Unknown Rash Verified 03/11/24 14:06 amoxicillin AdvReac Vomiting Verified 03/11/24 14:06 Review of Systems Sugical H&P ROS: Negative: Constitution, Cardiovascular, Respiratory and Gastrointestinal Exam Surgical H&P Exam: Normal: Heart, Normal: Lungs, Normal: Extremities and Normal: Abdomen Plan Diagnosis/Plan: Unchanged I have reviewed the history and physical and performed a pertinent physical examination on my patient. No changes have occurred unless specified. Time Spent With Patient Time: Total time managing care of this patient today ____ minutes.
--- NOTE | 2024-09-09 11:09 | P.OPN-COLO_ITS ---
Colonoscopy Operative Note Operative Note Date of Service: 09/09/24 Narrative: COLONOSCOPY TILL CECUM Pre-op diagnosis: Surveillance of colon polyps, family history of colon polyps and colon cancer. Post-op diagnosis:? Diverticulosis, hemorrhoids Endoscopist:? Darren Mcclellan MD Anesthesia:?MAC Consent: Indications for the procedure and potential complications of bleeding, perforation, reaction to medications and missed diagnosis were discussed with the patient and informed consent was obtained. Instrument: Olympus PCF H 190 L variable stiffness pediatric colonoscope Monitoring: Vital signs and clinical assessment, intermittent blood pressure monitoring, continuous EKG monitoring, Pulse oximetry and Carbon Dioxide monitoring were done throughout the procedure. Please see anesthesia flowsheet. Colon withdrawl time was 12 minutes. Procedure: The patient was placed in the left lateral decubitis position and pre-procedure medications were administered. After a digital rectal examination of the ano-rectum, the video colonoscope was inserted into the rectum and advanced through the colon to the cecum. The colonoscope was slowly withdrawn in a retrograde panoramic fashion and the colon mucosa was carefully examined including a retroflexed view of the rectum. Findings and interventions are described below. Procedure Difficulty: without difficulty Findings: Terminal Ileum: Not evaluated Cecum: Normal Ascending Colon: Normal Transverse Colon: Normal Descending Colon: Normal Sigmoid Colon: Moderate diverticulosis Rectum: Normal Ano-rectum: Small internal hemorrhoids Colon preparation: Excellent, after some irrigation. Marcella Bowel Preparation Scale Right colon; 3 Transverse colon: 3 Left colon; 3 (0 = Unprepared colon segment with mucosa not seen due to solid stool that cannot be cleared. 1 = Portion of mucosa of the colon segment seen, but other areas of the colon segment not well seen due to staining, residual stool and/or opaque liquid. 2 = Minor amount of residual staining, small fragments of stool and/or opaque liquid, but mucosa of colon segment seen well. 3 = Entire mucosa of colon segment seen well with no residual staining, small fragments of stool or opaque liquid) Impression and Post Procedure Diagnosis: Colonoscopy Findings: No polyps were detected Moderate diverticulosis seen in the sigmoid colon small hemorrhoids on retroflexed exam. Plan: Pt has a FU appointment on 09/23/24 with Kiki Morin NP Repeat Colonoscopy in 5 years due to a hx of colon polyps. Above findings were reviewed with the patient and relevant handouts were given and the discharge area.
[2024-09-09 11:10] VITALS: BP 92/55; PULSE 61; RESP 16; TEMP 36.1; O2SAT 97
[2024-09-09 11:25] VITALS: BP 104/64; BP 113/66; PULSE 50; RESP 16; TEMP 36.2; O2SAT 100
== END 2024-09-09 11:57 | disposition home or self-care (01) ==
PROVIDERS: PCP Internal Medicine; Visit Provider Internal Medicine Gastroenterology
PROC: 0DJD8ZZ Inspection of Lower Intestinal Tract, Via Natural or Artificial Opening Endoscopic (ICD-10-PCS; CPT 45378; principal; 2024-09-09 11:10)
DX: Z12.11 Encounter for screening for malignant neoplasm of colon (principal); K57.30 Diverticulosis of large intestine without perforation or abscess without bleeding; K64.8 Other hemorrhoids; Z80.0 Family history of malignant neoplasm of digestive organs; Z86.0101 Personal history of adenomatous and serrated colon polyps
CPT/HCPCS: 45378; J2003; J2704

== ENCOUNTER → 2024-10-21 13:34 | Outpatient (BNVA) | payer OTHER, SELFPAY | PROVIDERS: PCP Internal Medicine; Visit Provider Internal Medicine ==

== ENCOUNTER 2025-01-27 11:08 | Outpatient (AMB) | payer OTHER, SELFPAY ==
--- NOTE | 2025-01-27 11:37 | A.OFFPC_ITS ---
Vital Signs 01/27/25 11:38 Height 5 ft 5.5 in Weight 173 lb BMI 28.3 BP 124/74 Blood Pressure Location Rt brachial Position Sitting Respiration 18 Pulse 58 Pulse Source Pulse Oximeter Temp 98.7 F Temp Source Oral Pulse Oximetry (%) 98 Oxygen Delivery Method Room Air Intake Visit Reasons: Annual PE Intake Note: Pt is here today for PE. Allergies Fish Containing Products Allergy (Severe, Verified 01/27/25 11:39) Swelling bee pollen [BEE STINGS] Allergy (Unknown, Verified 01/27/25 11:39) Unknown lobster Allergy (Unknown, Verified 01/27/25 11:39) neck swelling, abd pain sulfa Allergy (Unknown, Verified 01/27/25 11:39) facial rash, hives sulfamethoxazole [From SEPTRA] Allergy (Unknown, Verified 01/27/25 11:39) Rash trimethoprim [From MAYRA] Allergy (Unknown, Verified 01/27/25 11:39) Rash amoxicillin Adverse Reaction (Verified 01/27/25 11:39) Vomiting Medication List - Last Reconciled 01/27/25 by Nilsa Bush MD levothyroxine 4 days per week orally daily; levothyroxine 3 days per week orally; Tobacco use date assessed: 01/27/25 Dental Screening Dental Screen Date: 01/27/25 Did you have a dental visit in the last 12 months?: Yes Did you have a dental problem in the last 6 months where you did not have access to dental care?: No Was dental information given to patient?: Patient has dentist HPI Annual PE HPI Details Patient presents for physical PFSH Medical History (Updated 01/27/25 @ 12:25 by Nilsa Bush MD) Acquired hypothyroidism Annual physical exam Hx of bone density study FHx: colon cancer Osteopenia after menopause Surgical History (Updated 01/27/25 @ 12:22 by Nilsa Bush MD) H/O colonoscopy Family History Father Diabetes Colorectal cancer Mother Hypothyroid Social History (Updated 01/27/25 @ 12:17 by Nilsa Bush MD) Household Members Other:: ronan owns saloon in [place] Housing: House Patient Tobacco Use Status: Never used Tobacco e-Cigarette/Vaping Use: Never Used Second Hand Smoke Exposure: No service: No Current occupational status: employed Cognitive needs: No Hearing needs: No Vision needs: Yes Questionnaire PHQ-9 Over the last 2 weeks, how often have you been bothered by any of the following problems? 1. Little interest or pleasure in doing things: not at all 2. Feeling down, depressed, or hopeless: not at all 3. Trouble falling or staying asleep, or sleeping too much: not at all 4. Feeling tired or having little energy: not at all 5. Poor appetite or overeating: not at all 6. Feeling bad about yourself - or that you are a failure or have let yourself or your family down: not at all 7. Trouble concentrating on things, such as reading the newspaper or watching television: not at all 8. Moving or speaking so slowly that other people could have noticed. Or the opposite - being so fidgety or restless that you have been moving around a lot more than usual: not at all 9. Thoughts that you would be better off or of hurting yourself in some way: not at all Total score: 0 Depression Screening Interpretation: Negative Depression Screening Done: Yes 83277 - PHQ-9 Billing: Yes Source: Developed by Drs. Valdez Bolton, Eliana Rice, Jesus Rojas and colleagues, with an educational john from [employer]. Thrive Questionnaire Date Thrive assessed: 01/27/25 I am a: Patient What is your living situation today?: I have a steady place to live Within the past 12 months, did the food you bought not last and you didn't have the money to get more?: Never true Within the past 12 months, did you worry whether your food would run out before you got money to buy more?: Never true Do you have trouble paying for medicines?: No Do you have trouble getting transportation to medical appointments?: No Do you have trouble paying your heating and electricity bill?: No Do you have trouble taking care of your child, family member or friend?: No Do you have trouble with day-to-day activities such as bathing, preparing meals, shopping, managing finances, etc.?: No Are you currently unemployed and looking for a job?: No Are you interested in more education?: No Please select the resources that you would like help with: None Currently or been in a relationship where the following occur: No concerns reported THRIVE Score: 0 AUDIT C Alcohol Use Questionnaire (AUDIT-C) 1. How often do you have a drink containing alcohol?: Monthly or less 2. How many drinks containing alcohol do you have on a typical day when you are drinking?: 1 or 2 3. How often do you have six or more drinks on one occasion?: Never Total Score: 1 ROSIO-7 AMB Questionnaire ROSIO-7 Date ROSIO - 7 assessed: 01/27/25 Feeling nervous, anxious, or on edge: 0 = Not at all Not being able to stop or control worryin = Not at all Worrying too much about different things: 0 = Not at all Trouble relaxin = Not at all Being so restless that it is hard to sit still: 0 = Not at all Becoming easily annoyed or irritable: 0 = Not at all Feeling afraid as if something awful might happen: 0 = Not at all Total ROSIO-7 score (0-4 normal; 5-9 mild; 10-14 moderate; 15-21 severe): 0 Source: Developed by Drs. Valdez Bolton, Eliana Rice, Jesus Rojas and colleagues, with an educational john from [employer]. ROSIO-7 Assessment Billing ROSIO-7 Assessment Tool: ROSIO-7 Assessment 69906 Review of Systems Const All systems reviewed & are unremarkable except as noted in HPI and below Eyes Reports no additional complaints ENT Reports no additional complaints Card Reports no additional complaints Resp Reports no additional complaints GI Reports no additional complaints Reports no additional complaints Physical exam (Primary Care) Vital Signs: Last Vital Signs Temp 98.7 F 01/27/25 11:38 Pulse 58 01/27/25 11:38 Resp 18 01/27/25 11:38 BP 124/74 01/27/25 11:38 Pulse Ox 98 01/27/25 11:38 Oxygen Delivery Method Room Air 01/27/25 11:38 BMI result Body Mass Index 28.3 Tobacco/Smoking Status: Tobacco use Status Tobacco use date assessed 01/27/25 01/27/25 11:43 Patient Tobacco Use Status Never used Tobacco 01/27/25 11:43 e-Cigarette/Vaping Use Never Used 01/27/25 11:43 PHQ-9: PHQ-9 Score PHQ-9: Total score 0 01/27/25 11:43 Depression Screening Interpretation: Negative Thrive Assessment: Date of Thrive Assessment Date Thrive assessed 01/27/25 01/27/25 11:43 Currently or been in a relationship where the following occur: No concerns reported Const General: no acute distress HENMT Head: Yes normal to inspection Ears: hearing grossly normal bilaterally Face and sinus: Yes normal facial exam Throat: Yes posterior oropharynx normal Eyes General: appearance normal, both eyes and all related structures Neck Neck: Yes no lymphadenopathy and Yes supple Resp Effort & Inspection: normal respiratory effort Auscultation: clear to auscultation bilaterally Cardio Rhythm: regular rhythm Heart sounds: S1 normal heart sound present and S2 normal heart sound present GI Inspection: Yes normal to inspection Palpation (GI): Soft to palpation Percussion: Yes normal to percussion Auscultation: normal bowel sounds Coding Level of Care Code Est Pt Prev Care 40-64y(36686) Diagnoses H/O colonoscopy Z98.890 Annual physical exam Z00.00 Acquired hypothyroidism E03.9 Additional Codes ROSIO-7 Assessment Billing - ROSIO-7 Assessment Tool: ROSIO-7 Assessment 61294 ([id number]) PHQ-9 - 03291 - PHQ-9 Billing: Yes ([id number]) Assessment & Plan Assessment & Plan (1) H/O colonoscopy: Comment: colon > 03/2019 polyps tubular adenoma, repeat 09/17 negative, repeat 5 yrs Code(s): Z98.890 - Other specified postprocedural states Category: Surgical Plan: Follow-up with GI and 5 years (2) Annual physical exam: Code(s): Z00.00 - Encounter for general adult medical examination without abnormal findings Category: Medical Plan: Well-balanced diet regular physical activity discussed with the patient she is established with collar feller and will have DEXA. Patient is up-to-date with the mammogram and colonoscopy (3) Acquired hypothyroidism: Code(s): E03.9 - Hypothyroidism, unspecified Category: Medical Plan: Check TSH continue levothyroxine Orders: Orders Comprehensive [place]. Panel Fast 1 Year E03.9 - Hypothyroidism, unspecified, E55.9 - Vitamin D deficiency, unspecified, Z00.00 - Encounter for general adult medical examination without abnormal findings Complete Blood Count Auto Diff 1 Year E03.9 - Hypothyroidism, unspecified, E55.9 - Vitamin D deficiency, unspecified, Z00.00 - Encounter for general adult medical examination without abnormal findings Lipid Panel 1 Year E03.9 - Hypothyroidism, unspecified, E55.9 - Vitamin D deficiency, unspecified, Z00.00 - Encounter for general adult medical examination without abnormal findings TSH reflex Free T4 1 Year E03.9 - Hypothyroidism, unspecified, E55.9 - Vitamin D deficiency, unspecified, Z00.00 - Encounter for general adult medical examination without abnormal findings Vitamin D 25-OH Total 1 Year E03.9 - Hypothyroidism, unspecified, E55.9 - Vitamin D deficiency, unspecified, Z00.00 - Encounter for general adult medical examination without abnormal findings Medications: Refilled levothyroxine 4 days per week orally daily; 50 tabs 3RF E03.9 - Hypothyroidism, unspecified levothyroxine 3 days per week orally; 39 tabs 3RF E03.9 - Hypothyroidism, unspecified
[2025-01-27 11:38] VITALS: BP 124/74; PULSE 58; RESP 18; TEMP 37.1; O2SAT 98; BMI 28.3
== END 2025-01-27 12:23 | disposition home or self-care (01) ==
LOC: HO.HMCC 11:09
PROVIDERS: PCP Internal Medicine; Visit Provider Internal Medicine
DX: Z98.890 Other specified postprocedural states (principal); Z00.00 Encounter for general adult medical examination without abnormal findings; E03.9 Hypothyroidism, unspecified

== ENCOUNTER 2025-01-27 11:08 | Outpatient (REF) | payer OTHER, SELFPAY ==
[2025-01-27 13:17] LABS: MANUAL DIFF FLAG NO
[2025-01-27 13:26] LABS: Basophils Absolute Auto 0.1 X10*3/uL (0.0-0.2); Eosinophils Absolute Auto 0.1 X10*3/uL (0.0-0.4); Eosinophils Percent Auto 1.2 % (0-4); Hematocrit 41.5 % (37.0-47.0); Hemoglobin 13.7 g/dl (12.0-16.0); Imm Gran Abs Auto 0.02 X10*3/uL (0.00-0.03); Imm Gran Pct Auto 0.3 % (0.0-0.4); Lymphocytes Absolute Auto 2.2 X10*3/uL (1.2-4.9); Lymphocytes Percent Auto 29.9 % (20-40); Mean Corpuscular Hemoglobin 30.7 pg (27.0-33.0); Mean Platelet Volume 10.2 fL (9.4-12.3); Monocytes Absolute Auto 0.5 X10*3/uL (0.1-1.2); Monocytes Percent Auto 6.2 % (2-11); Neutrophils Absolute Auto 4.4 x10*3/uL (2.0-8.3); Neutrophils Percent Auto 61.4 % (45-73); Platelet Count 300 X10*3/uL (160-400); Red Blood Count 4.46 X10*6/uL (4.20-5.50); Red Cell Distribution Width 13.2 % (11.0-16.0); White Blood Count 7.2 X10*3/uL (4.8-10.8)
[2025-01-27 13:36] LABS: Appearance Urine Clear; Color Urine Yellow; Glucose Urine UA Negative (Negative); Leukocyte Esterase Urine Trace (Negative); Nitrite Urine Negative (Negative); PH 5.5 (5.0-9.0); Specific Gravity - Urine 1.015 (1.005-1.025); UMIC TRIGGER UA YES; Urine Blood Negative (Negative); Urine Ketones Trace mg/dL (Negative); Urine Protein Negative (Neg-Trace)
[2025-01-27 13:46] LABS: Bacteria Urine None Seen (None Seen); Hyaline Casts Urine 0-2 /LPF (0-2); RBC Urine 0-2 /HPF (0-2); Squamous Epithelial Cell Urine 0-2 /HPF (0-2); WBC Urine 0-5 /HPF (0-5)
[2025-01-27 14:26] LABS: TSH reflex Free T4 1.15 uIU/mL (0.32-4.0); Vitamin D 25-OH Total 52.3 ng/mL (>30)
[2025-01-27 14:42] LABS: Alanine Aminotransferase 19 U/L (0-31); Albumin Level 4.1 g/dL (3.5-5.0); Anion Gap 15 (12-20); Aspartate Amino Transferase 28 U/L (5-31); Bilirubin Total 0.5 mg/dL (0.0-1.0); Blood Urea Nitrogen 12 mg/dL (9-16); Calcium 9.1 mg/dL (8.4-10.2); Carbon Dioxide 23 mmol/L (22-29); Chloride 107 mmol/L (96-108); Cholesterol 193 mg/dL (<200); Estimated Glomerular Filt Rate > 60; Glucose Fasting 78 mg/dL (60-99); HDL Cholesterol 63 mg/dL (>40); LDL Cholesterol Calculated 116 mg/dL (<100); Potassium 3.9 mmol/L (3.3-5.1); Sodium 141 mmol/L (135-145); Total Protein 6.3 g/dL (6.5-8.0); Triglycerides 74 mg/dL (<150)
[2025-01-27 14:50] LABS: Alkaline Phosphatase 72 U/L (39-117)
== END 2025-01-27 11:09 | disposition home or self-care (01) ==
LOC: HO.HMGCLDS 11:08
PROVIDERS: PCP Internal Medicine; Visit Provider Internal Medicine
DX: Z00.00 Encounter for general adult medical examination without abnormal findings (principal); E03.9 Hypothyroidism, unspecified; E55.9 Vitamin D deficiency, unspecified; Z86.0101 Personal history of adenomatous and serrated colon polyps
CPT/HCPCS: 36415; 80053; 80061; 81001; 82306; 84443; 85025; 96127; 99396

== ENCOUNTER 2025-03-03 10:13 | Outpatient (REF) | payer OTHER, SELFPAY ==
[2025-03-07 11:10] LABS: HPV Genotype 16 Negative (Negative); HPV Genotype 18 Negative (Negative); HPV High Risk Negative (Negative)
== END 2025-03-03 10:14 | disposition home or self-care (01) ==
LOC: HO.LNP 10:13
PROVIDERS: PCP Internal Medicine; Visit Provider Obstetrics & Gynecology
DX: Z01.419 Encounter for gynecological examination (general) (routine) without abnormal findings (principal)
CPT/HCPCS: 87626; 88175; 99212; 99459

== ENCOUNTER 2025-03-03 10:13 | Outpatient (AMB) | payer OTHER, SELFPAY ==
--- NOTE | 2025-03-03 10:16 | MHC.OFFVIS ---
Vital Signs 03/03/25 10:18 Height 5 ft 5.5 in Weight 173 lb BMI 28.3 BP 98/66 Intake Visit Reasons: Annual/do not r/s/3rd appt Primary School Principal Required: No Information Interpreted: non-clinical & clinical Neon Sign Installer: Neon Sign Installer Present (Jazzy REED) Accompanied by: Self / Same As Patient Allergies bee pollen [BEE STINGS] Allergy (Unknown, Verified 03/03/25 10:19) Unknown sulfa Allergy (Unknown, Verified 03/03/25 10:19) facial rash, hives sulfamethoxazole [From SEPTRA] Allergy (Unknown, Verified 03/03/25 10:19) Rash trimethoprim [From SEPTRA] Allergy (Unknown, Verified 03/03/25 10:19) Rash amoxicillin Adverse Reaction (Verified 03/03/25 10:19) Vomiting Post menopausal: Yes HPI Comments Details: Presenting for annual exam. No complaints. 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 [place] Housing: House Alcohol intake: current Alcohol intake frequency: holidays/special occasions only Patient Tobacco Use Status: Former Tobacco user Tobacco use type: Cigarette Years Smoked: 10 e-Cigarette/Vaping Use: Never Used Second Hand Smoke Exposure: No service: No Current occupational status: employed Current occupation: [employer] Sexually active: Yes Sexual orientation: Straight/Heterosexual Gender identity: Female Cognitive needs: No Hearing needs: No Vision needs: Yes Female Reproductive History Menstrual Total pregnancies: 1 Full term: 1 Number of Living Children: 1 Date of Mammogram: 08/26/24 Review of Systems Const All systems reviewed & are unremarkable except as noted in HPI and below Card Reports as per HPI Resp Reports as per HPI GI Reports as per HPI and Reports no additional complaints Reports as per HPI Physical Exam Vital Signs: Last Vital Signs BP 98/66 03/03/25 10:18 BMI result Body Mass Index 28.3 Const General: cooperative, healthy appearing and comfortable Chest Chest palpation & inspection: normal inspection of the chest and normal palpation of entire chest wall Breast/axilla inspection: normal inspection of the breasts and normal inspection of the axillae Breast/axilla palpation: normal palpation of the breasts, normal palpation of the axillae and no axillary lymphadenopathy Resp Effort & Inspection: normal respiratory effort Auscultation: clear to auscultation bilaterally Percussion: percussion normal Cardio Palpation: normal PMI Rate: regular rate Rhythm: regular rhythm Heart sounds: no murmurs and no rubs Peripheral pulses: Peripheral pulses 2+ throughout GI Inspection: Yes normal to inspection Palpation (GI): Soft to palpation, nontender, no guarding, not rigid and No hepatosplenomegaly present Percussion: Yes normal to percussion Auscultation: normal bowel sounds Rectal Exam - Female: deferred General: Yes bladder normal to palpation External Female Exam: No lesion Speculum Exam - Vagina: normal appearance of the vagina, normal palpation, normal vaginal discharge and not erythematous Speculum Exam - Cervix: normal appearance of the cervix and normal palpation Bimanual exam- vagina & uterus: normal bimanual exam, normal palpation, uterine size normal, bladder normal to palpation, consistency normal and normal palpation Bimanual Exam- Adnexa, other: no masses, no tenderness and Other (Right adnexa within normal, left adnexal fullness) Assessment & Plan Assessment & Plan (1) Well woman exam: Code(s): Z01.419 - Encounter for gynecological examination (general) (routine) without abnormal findings Category: Medical Plan: Co testing done. Counseled the patient about the recommended dietary allowance of 1200 mg of Calcium & 600 IU of vitamin D. Instructions given the patient to schedule next screening Mammogram in 09/18. The patient was instructed to perform monthly self-breast exams and schedule annual exam in a year. All questions answered and the patient verbalized understanding. (2) Adnexal fullness: Comment: Left side Code(s): N94.9 - Unspecified condition associated with female genital organs and menstrual cycle Category: Medical Plan: Discussed with the patient the finding on pelvic exam showing a left adnexal fullness. Pelvic ultrasound ordered. Instructions given the patient to schedule a follow-up appointment within 2 weeks. All questions answered, the patient verbalized understanding. Orders: Orders US pelvic and transvaginal Today N94.9 - Unspecified condition associated with female genital organs and menstrual cycle Coding Level of Care Code Est Pt Level 3 (10366) Est Pt Prev Care 40-64y(62716) Diagnoses Well woman exam Z01.419 Adnexal fullness N94.9
[2025-03-03 10:18] VITALS: BP 98/66; BMI 28.3
== END 2025-03-03 10:34 | disposition home or self-care (01) ==
LOC: HO.HWS 10:13
PROVIDERS: PCP Internal Medicine; Visit Provider Obstetrics & Gynecology
DX: Z01.419 Encounter for gynecological examination (general) (routine) without abnormal findings (principal); N94.9 Unspecified condition associated with female genital organs and menstrual cycle
CPT/HCPCS: 99213; 99459

== ENCOUNTER 2025-03-31 13:31 | Outpatient (REF) | payer OTHER, SELFPAY ==
--- NOTE | ~2025-03-31 | US_ITS ---
CLINICAL HISTORY: N94.9 - adnexal fullness Ultrasound of the female pelvis Comparison: None Technique: Grayscale ultrasound with assistance of color Doppler. Transabdominal scanning performed for overall anatomy. Transvaginal scanning performed for better anatomic delineation. Findings: Anteverted uterus is enlarged for the age, 7.0 x 5.4 x 5.4 cm, heterogeneous myometrium, there is heterogeneous partially calcified soft tissue mass 5.6 x 3.7 x 4.3 cm in the uterine body and fundus, most likely fibroid, associated posterior acoustic shadowing obscuring posterior uterus and endometrium, the endometrium is not seen. Small nabothian cysts. Ovaries are not seen, bilateral adnexa are occupied by peristalsing bowel. No free fluid. Impression: 1. Large uterine fibroid. 2. Endometrium and ovaries are not seen. This document has been electronically signed by: Tawnya Alford MD on 04/01/2025 12:30:12
== END 2025-03-31 13:32 | disposition home or self-care (01) ==
LOC: HO.HMGCX 13:31
PROVIDERS: PCP Internal Medicine; Visit Provider Obstetrics & Gynecology
DX: N94.9 Unspecified condition associated with female genital organs and menstrual cycle (principal)
CPT/HCPCS: 76830; 76856

== ENCOUNTER → 2025-03-31 13:34 | Outpatient (BNV) | payer OTHER, SELFPAY | PROVIDERS: PCP Internal Medicine; Visit Provider Radiology Diagnostic Radiology | DX: D25.9 Leiomyoma of uterus, unspecified (principal) | CPT/HCPCS: 76830; 76856 ==

== ENCOUNTER 2025-04-04 07:54 | Outpatient (AMB) | payer OTHER, SELFPAY ==
--- NOTE | 2025-04-04 07:55 | MHC.OFFVIS ---
Intake Visit Reasons: Ultrasound results Allergies bee pollen (BEE STINGS) Allergy (Unknown, Verified 03/03/25 10:19) Unknown sulfa Allergy (Unknown, Verified 03/03/25 10:19) facial rash, hives sulfamethoxazole (From SEPTRA) Allergy (Unknown, Verified 03/03/25 10:19) Rash trimethoprim (From SEPTRA) Allergy (Unknown, Verified 03/03/25 10:19) Rash amoxicillin Adverse Reaction (Verified 03/03/25 10:19) Vomiting HPI Comments Details: The patient is scheduled a telehealth visit regarding pelvic ultrasound for adnexal fullness identified on pelvic exam. Recent pelvic ultrasound showed the following: Anteverted uterus is enlarged for the age, 7.0 x 5.4 x 5.4 cm, heterogeneous myometrium, there is heterogeneous partially calcified soft tissue mass 5.6 x 3.7 x 4.3 cm in the uterine body and fundus, most likely fibroid, associated posterior acoustic shadowing obscuring posterior uterus and endometrium, the endometrium is not seen. Small nabothian cysts. Ovaries are not seen, bilateral adnexa are occupied by peristalsing bowel. No free fluid. 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) in [place] Housing: House Alcohol intake: current Alcohol intake frequency: holidays/special occasions only Patient Tobacco Use Status: Former Tobacco user Tobacco use type: Cigarette Years Smoked: 10 e-Cigarette/Vaping Use: Never Used Second Hand Smoke Exposure: No service: No Current occupational status: employed Current occupation: [employer] Sexual orientation: Straight/Heterosexual Gender identity: Female Cognitive needs: No Hearing needs: No Vision needs: Yes Review of Systems Const All systems reviewed & are unremarkable except as noted in HPI and below Reports as per HPI and Reports no additional complaints GI Reports no additional complaints Reports no additional complaints Telehealth Telehealth Telehealth Platform: Telephone Location of provider rendering services: practice address Location of patient: address on file Patient Identification confirmed using: Name, : Yes Telehealth method: voice only Patient verbally consented to treatment: Yes Patient verbally consented to billing insurance company: Yes Patient informed of any privacy concerns related to visit: Yes Minutes spent on Phone/Video with Pt.: 4 Assessment & Plan Assessment & Plan (1) Uterine myoma: Code(s): D25.9 - Leiomyoma of uterus, unspecified Category: Medical Plan: Discussed with the patient the findings on pelvic ultrasound & the risk of myosarcoma; in addition reviewed with the patient that malignancy and pre malignancy cannot be ruled out without hysterectomy for pathological evaluation ; furthermore, explained to the patient the limitation of pelvic ultrasound . Recommended pelvic MRI to evaluate uterine mass/fibroids with a higher accuracy. Instructions given the patient is schedule an MRI and a follow-up appointment within 2 weeks. All questions answered, the patient verbalized understanding and agreed with the plan . I spent a total of 20 minutes reviewing the chart, talking to the patient via phone and documenting in the medical record. Orders: Orders MR pelvis wo con Today D25.9 - Leiomyoma of uterus, unspecified Coding Level of Care Code Tele Est Pt Level 3 (55736) Diagnoses Uterine myoma D25.9
== END 2025-04-04 08:16 | disposition home or self-care (01) ==
PROVIDERS: PCP Internal Medicine; Visit Provider Obstetrics & Gynecology
DX: D25.9 Leiomyoma of uterus, unspecified (principal)
CPT/HCPCS: 98004

== ENCOUNTER 2025-04-19 16:28 | Outpatient (REF) | payer OTHER, SELFPAY ==
--- NOTE | ~2025-04-19 | MR_ITS ---
EXAMINATION: MR PELVIS WITHOUT THEN WITH IV CONTRAST HISTORY: D25.9 - Leiomyoma of uterus, unspecified. TECHNIQUE: Axial T1, fat-suppressed T1, and fat suppressed T2, and sagittal and coronal T2-weighted MR images of the pelvis were obtained. Subsequently, sagittal and axial fat-suppressed T1-weighted images were obtained after the intravenous administration of 7.5 mL Gadavist. COMPARISON: Correlation is made with a pelvic ultrasound dated 03/31/2025. FINDINGS: The uterus measures approximately 8.0 x 6.0 x 6.6 cm. There is a left-sided intramural fibroid measuring 5.8 x 5.8 x 4.7 cm. An additional probable submucosal fibroid is noted measuring 1.3 x 0.8 x 1.6 cm. The endometrium is not well visualized. There are nabothian cysts in the cervix. The ovaries are normal in size. There is no ascites or pelvic lymphadenopathy. The urinary bladder is collapsed. There is diverticulosis of the sigmoid colon, without evidence of diverticulitis. The visualized bones demonstrate normal marrow signal intensity. MR/MR pelvis wo/w con IMPRESSION: Fibroid uterus as described. Electronically signed by: Valdez Simmons MD 04/21/2025 08:02 AM EDT
== END 2025-04-19 16:29 | disposition home or self-care (01) ==
LOC: HO.MRI 16:28
PROVIDERS: PCP Internal Medicine; Visit Provider Obstetrics & Gynecology
DX: D25.9 Leiomyoma of uterus, unspecified (principal)
CPT/HCPCS: 72197; A9585

== ENCOUNTER → 2025-04-19 16:28 | Outpatient (BNV) | payer OTHER, SELFPAY | PROVIDERS: PCP Internal Medicine; Visit Provider Radiology Diagnostic Radiology | DX: D25.9 Leiomyoma of uterus, unspecified (principal) | CPT/HCPCS: 72197 ==

== ENCOUNTER 2025-05-01 10:09 | Outpatient (AMB) | payer OTHER, SELFPAY ==
--- NOTE | 2025-05-01 10:12 | MHC.OFFVIS ---
Vital Signs 05/01/25 10:14 Height 5 ft 5.5 in Weight 173 lb BMI 28.3 Intake Visit Reasons: MRI follow up Senior Linux Unix Engineer Required: No Information Interpreted: non-clinical & clinical Accompanied by: Self / Same As Patient Allergies bee pollen (BEE STINGS) Allergy (Unknown, Verified 05/01/25 10:17) Unknown sulfa Allergy (Unknown, Verified 05/01/25 10:17) facial rash, hives sulfamethoxazole (From SEPTRA) Allergy (Unknown, Verified 05/01/25 10:17) Rash trimethoprim (From SEPTRA) Allergy (Unknown, Verified 05/01/25 10:17) Rash amoxicillin Adverse Reaction (Verified 05/01/25 10:17) Vomiting HPI Comments Details: Presenting for pelvic MRI follow-up which showed the following: The uterus measures approximately 8.0 x 6.0 x 6.6 cm. There is a left-sided intramural fibroid measuring 5.8 x 5.8 x 4.7 cm. An additional probable submucosal fibroid is noted measuring 1.3 x 0.8 x 1.6 cm. The endometrium is not well visualized. There are nabothian cysts in the cervix. The ovaries are normal in size. There is no ascites or pelvic lymphadenopathy. The urinary bladder is collapsed. There is diverticulosis of the sigmoid colon, without evidence of diverticulitis. The visualized bones demonstrate normal marrow signal intensity. [facility] Medical History Acquired hypothyroidism Annual physical exam Hx of bone density study FHx: colon cancer Osteopenia after menopause Surgical History H/O colonoscopy Family History Father Diabetes Colorectal cancer Mother Hypothyroid Paternal Aunt Ovarian cancer Social History Household Members: Spouse Household Members Other:: ronan owns saloon in [place] Housing: House Alcohol intake: current Alcohol intake frequency: holidays/special occasions only Patient Tobacco Use Status: Former Tobacco user Tobacco use type: Cigarette Years Smoked: 10 e-Cigarette/Vaping Use: Never Used Second Hand Smoke Exposure: No service: No Current occupational status: employed Current occupation: Hairdresser Sexual orientation: Straight/Heterosexual Gender identity: Female Cognitive needs: No Hearing needs: No Vision needs: Yes Review of Systems Const All systems reviewed & are unremarkable except as noted in HPI and below Reports as per HPI and Reports no additional complaints GI Reports no additional complaints Reports no additional complaints Physical Exam Vital Signs: BMI result Body Mass Index 28.3 Assessment & Plan Assessment & Plan (1) Uterine myoma: Code(s): D25.9 - Leiomyoma of uterus, unspecified Category: Medical Plan: Discussed with the patient the findings on pelvic ultrasound and pelvic MRI & the risk of myosarcoma; in addition reviewed with the patient that malignancy and pre malignancy cannot be ruled out without hysterectomy for pathological evaluation ; furthermore, explained to the patient the limitation of pelvic ultrasound and endometrial biopsy in the setting. Discussed with the patient the options of treatment including expectant management versus hysterectomy; the pros and cons, risks benefits of each approach were discussed with the patient including the fact that in cases of myosarcoma, surgical treatment can lead to early diagnosis and positively affects the prognosis; after further discussion, the patient decided to proceed with expectant management. Will repeat pelvic ultrasound periodically. Instructions given to patient to call in case any of the following occurs: pressure symptoms, abnormal uterine bleeding, pelvic pain; and to schedule a six-months pelvic ultrasound (order placed) and a follow-up appointment . All questions answered, the patient verbalized understanding and agreed with the plan . Orders: Orders US pelvic and transvaginal 6 Months D25.9 - Leiomyoma of uterus, unspecified Coding Level of Care Code Est Pt Level 3 (24195) Diagnoses Uterine myoma D25.9
[2025-05-01 10:14] VITALS: BMI 28.3
== END 2025-05-01 10:40 | disposition home or self-care (01) ==
LOC: HO.HWS 10:09
PROVIDERS: PCP Internal Medicine; Visit Provider Obstetrics & Gynecology
DX: D25.9 Leiomyoma of uterus, unspecified (principal)
CPT/HCPCS: 99213

== ENCOUNTER → 2025-05-01 10:09 | Outpatient (BNVA) | payer OTHER, SELFPAY | PROVIDERS: PCP Internal Medicine; Visit Provider Obstetrics & Gynecology | DX: Z71.2 Person consulting for explanation of examination or test findings (principal); D25.9 Leiomyoma of uterus, unspecified | CPT/HCPCS: 99212 ==

== ENCOUNTER 2025-09-01 10:51 | Outpatient (REF) | payer OTHER, SELFPAY ==
--- NOTE | ~2025-09-01 | MM_ITS ---
EXAMINATION: MM SCREENING DIGITAL BREAST TOMOSYNTHESIS, BILATERAL CLINICAL INFORMATION: Screening. Asymptomatic. COMPARISON: Comparison made to multiple prior, most recent August 26, 2024, and most remote February 08, 2016. TECHNIQUE: Digital breast tomosynthesis is performed in mediolateral oblique and craniocaudal views along with computer-aided detection (CAD). Synthesized 2D images are generated from the tomosynthesis. FINDINGS: BREAST COMPOSITION: There are scattered areas of fibroglandular density. BILATERAL BREASTS: No significant masses, suspicious calcifications or other abnormalities are seen in either breast. MM/MM tomosynthesis screening BI IMPRESSION: BILATERAL BREASTS: Negative, no mammographic evidence of malignancy. Normal interval follow-up is recommended in 12 months. ASSESSMENT: BI-RADS: Category 1: Negative RECOMMENDATION: Routine annual mammography screening. FOLLOW-UP: 1 year F/U This examination should not preclude the clinical evaluation of a suspicious palpable abnormality. This patient's information was entered into a reminder system with a target due date for their next mammogram. Electronically signed by: Padmini Ortiz MD 09/01/2025 07:43 PM [facility] [place]
== END 2025-09-01 10:52 | disposition home or self-care (01) ==
LOC: HO.MAMMO 10:51
PROVIDERS: PCP Internal Medicine; Visit Provider Internal Medicine
DX: Z12.31 Encounter for screening mammogram for malignant neoplasm of breast (principal)
CPT/HCPCS: 77063; 77067

== ENCOUNTER → 2025-09-01 11:15 | Outpatient (BNV) | payer OTHER, SELFPAY | PROVIDERS: PCP Internal Medicine; Visit Provider Radiology Body Imaging | DX: Z12.31 Encounter for screening mammogram for malignant neoplasm of breast (principal) | CPT/HCPCS: 77063; 77067 ==